=== PATIENT | male | born 1985 | race Caucasian/White ===

== ENCOUNTER 2016-11-05 17:03 | Emergency (ER) | payer MEDICAID ==
[2016-11-05 17:13] VITALS: RESP 18; TEMP 96.8; O2SAT 94
--- NOTE | 2016-11-05 17:27 | EDPHY ---
H & P HPI/ROS: CHIEF COMPLAINT: Altered mental status HISTORY OF PRESENT ILLNESS: Patient is a 31-year-old male who presents to the emergency department via EMS with altered mental status. [place] Patient stated he wanted to be left alone. He came up to the trail [place] for "me time." He reports drinking alcohol but is not cooperative with questioning. He does not answer any of my questions in the emergency department. He states he does not want me to evaluate or touch him. REVIEW OF SYSTEMS: Unable to obtain due to his altered mental status Past Medical/Surgical History: Denies Past surgical history: Denies Social history: Includes alcohol. The rest the social history is unclear. Smoking Status: Unknown if ever smoked Physical Exam: Vitals noted GENERAL: Disheveled and dirty. No acute distress, alert. Aggressive on examination and unwilling to answer questions. HEENT: Eyes normal to inspection, normal pharynx, no signs of dehydration. No signs of trauma. NECK: No thyromegaly, no lymphadenopathy, supple. No spinal tenderness palpation RESPIRATORY: Clear to auscultation bilaterally, no rales, rhonchi or wheezing. CVS: Regular rate and rhythm, no rubs, murmurs, or gallops. ABDOMEN: Soft, nontender, nondistended, no organomegaly. BACK: Normal to inspection, no CVA tenderness. SKIN: Patient has diffuse scattered abrasions on his extremities. He has no other rash. His skin is warm and dry. Normal color.. EXTREMITIES: No pedal edema, no calf tenderness, no Homans sign or cords, no joint swelling. NEURO/PSYCH: Alert and combative, normal mood and affect, normal motor sensory exam. No obvious cranial nerve deficit. Constitutional: Initial Vital Signs Temperature (C) 36.0 C 11/05/16 17:09 Heart Rate 107 H 11/05/16 17:09 Respiratory Rate 18 11/05/16 17:09 Blood Pressure 148/99 H 11/05/16 17:09 O2 Sat (%) 94 11/05/16 17:09 O2 Delivery Mode Room Air Allergies/Adverse Reactions: No Known Allergies Allergy (Unverified 11/05/16 17:09) Home Medications: Medication Instructions Recorded NK [No Known Home Meds] 11/05/16 Medical Decision Making ED Course/Re-evaluation: In the emergency department I discussed the plan with the patient. He will be observed. 17 30: I rechecked the patient. He is more cooperative. He states he was drinking alcohol and denies other drug use. He was compliant with a Breathalyzer. 310. He was able to ambulate well in the emergency department. He will be sent to the [facility] for further metabolization of his alcohol. Differential Diagnosis: My differential includes but is not limited to subarachnoid hemorrhage, subdural hematoma, epidural hematoma, electrolyte abnormality, sugar abnormality , drug use, alcohol abuse Departure - Departure Disposition: Home, Routine, Self-Care Clinical Impression: Alcoholic intoxication Qualifiers: Complication of substance-induced condition: uncomplicated Qualified Code(s): F10.120 - Alcohol abuse with intoxication, uncomplicated Condition: Good Instructions: Abuse of Alcohol (ED), Alcohol Intoxication (ED) Referrals: [facility],. [Clinic] - As per Instructions
[2016-11-05] MEDS ORDERED: NICOTINE POLACRILEX 2 MG GUM B ONE ×2 (17:36→17:37)
[2016-11-05] MEDS ORDERED: CHLORDIAZEPOXIDE 25MG PREPK#6 BTL TAKEHOME ONE ×2 (17:40→17:42)
[2016-11-05 18:35] VITALS: BP 132/89; PULSE 99
== END 2016-11-05 18:35 | disposition home or self-care (01) ==
LOC: EDUNIT#
DX: F10.120 Alcohol abuse with intoxication, uncomplicated (principal)